=== PATIENT | male | born 1940 | race Caucasian/White ===

== ENCOUNTER 2017-07-14 21:09 | Inpatient (IN) | payer MEDICARE, OTHER ==
[~2017-07-14] VITALS: Ht 177.8 cm; Wt 71.2 kg
--- NOTE | 2017-07-14 21:44 | NUR ---
Unable to complete med recon at this time. Pt unable to verify if taking any medications. Pt arrived [facility], no medication list arrived with pt. No emergency contact listed to call.
[2017-07-14 21:50] LABS: BASOPHILS # (AUTO) 0.1 K/uL (0.0-8.0); BASOPHILS % (AUTO) 0.9 % (0.0-2.0); EOSINOPHILS % (AUTO) 0.3 % (0.0-7.0); LYMPHOCYTES # (AUTO) 1.1 K/UL (0.8-4.8); LYMPHOCYTES % (AUTO) 17.5 % (20.5-51.5); MEAN CORPUSCULAR HEMOGLOBIN 29.3 UUG (27.0-31.0); MEAN CORPUSCULAR HGB CONC 33 g/dL (32.0-37.0); MEAN CORPUSCULAR VOLUME 89.7 FL (82.0-92.0); MONOCYTES # (AUTO) 0.4 K/UL (0.1-1.30); MONOCYTES % (AUTO) 6.6 % (0.0-11.0); NEUTROPHILS # (AUTO) 4.6 K/UL (1.8-8.9); NEUTROPHILS % (AUTO) 74.7 % (38.5-71.5); PLATELET COUNT (AUTO) 163 K/UL (150-450); RED BLOOD CELL COUNT(AUTO) 5.13 MIL/UL (4.7-6.1); WHITE BLOOD COUNT (AUTO) 6.2 K/UL (4.0-11.2)
[2017-07-14 22:06] LABS: ALANINE AMINOTRANSFERASE 40 U/L (16-63); ALKALINE PHOSPHATASE 74 U/L (50-136); ASPARTATE AMINOTRANSFERASE 38 U/L (15-37); BILIRUBIN,DIRECT 0.3 mg/dL (0.0-0.2); BILIRUBIN,TOTAL 1.2 mg/dL (0.2-1.0); CARBON DIOXIDE 27 mmol/L (21-32); CHLORIDE 107 mmol/L (98-107); CREATININE 1.3 mg/dL (0.6-1.3); GLUCOSE 134 mg/dL (74-106); POTASSIUM 4.3 mmol/L (3.5-5.1); TOTAL PROTEIN, SERUM 7.4 g/dL (6.4-8.2); UREA NITROGEN, BLOOD 28 mg/dL (7-18)
[2017-07-14 22:08] LABS: ACETAMINOPHEN < 2.0 ug/mL (10-30)
[2017-07-14 22:21] LABS: ETHANOL < 3 MG/DL (0-0)
[2017-07-14 22:32] LABS: THYROID STIMULATING HORMONE 1.544 mIU/mL (0.358-3.740)
--- NOTE | 2017-07-14 23:10 | NUR ---
Pt. admitted to [facility], under care of Dr. Luna Belongs List completed
[2017-07-14 23:20] VITALS: BP 142/84
--- NOTE | 2017-07-14 23:45 | NUR ---
received to care, at 2315, from the emergency room on a 72 hour hold, for danger to self. according to the hold, he is a resident of the [facility], where he was reported to be wandering the halls of the 5th floor of his residence in his underwear, appearing confused and disoriented. he also had a previous suicide attempt, when he jumped out of his 5th floor window. [employer] was dispatched after a neighbor called 911. upon arrival on the unit, he appeared very confused and disorganized. french speaking only. he was unable to state his name, or other pertinent information. he did state that he is HIV positive, had a recent fall, and suffers from depression. pt was cooperative with physical assessment, and is now in bed. no distress noted. will continue to monitor closely.
[2017-07-15] MEDS ORDERED: ACETAMINOPHEN 325 MG TABLET PO PRN
[2017-07-15] MEDS ORDERED: MAGNESIUM HYDROXIDE 30 ML LIQUID UDC PO PRN
[2017-07-15] MEDS ORDERED: ZOLPIDEM 5 MG TABLET PO PRN
[2017-07-15] MEDS ORDERED: MAG HYDROX/AL HYDROX/SIMETH 30 ML LIQUID UDC PO PRN
--- NOTE | 2017-07-15 06:00 | NUR ---
slept 2.25 hours, total. refused PRN medications for insomnia and anxiety. as of 0600, he continues to sleep. no distress noted.
[2017-07-15 07:30] VITALS: BP 167/84
[2017-07-15] MEDS: risperiDONE-M 0.5 MG TAB.RAPDIS PO SCH ×2 (09:00→16:31)
[2017-07-15] MEDS ORDERED: INFLUENZA VACCINE 2017-2018 0.5 ML DISP.SYRIN IM ONE (12:30)
[2017-07-15] MEDS ORDERED: PNEUMOCOCCAL 23-VAL P-SAC VAC 0.5 ML VIAL IM ONE (13:00)
--- NOTE | 2017-07-15 13:59 | NUR ---
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 refused, Also refused meals, fluids offered. refused immunization ordered, transfer engineer requested, patient speaks Sinhala but noted able to say simple Malaysian.Safety reviewed emphasized.
[2017-07-15 15:20] VITALS: BP 158/82
[2017-07-15] MEDS: LORAZEPAM 1 MG TABLET PO PRN (15:52)
[2017-07-15] MEDS: METOPROLOL TARTRATE 25 MG TABLET PO SCH (22:45)
[2017-07-15 22:53] LABS: *AMPHETAMINE, URINE NEGATIVE (NEGATIVE); *BARBITURATE, URINE NEGATIVE (NEGATIVE); *CANNABINOID, URINE NEGATIVE (NEGATIVE); *COCCAINE, URINE NEGATIVE (NEGATIVE); *OPIATE, URINE NEGATIVE (NEGATIVE); *PHENCYCLIDINE SCREEN,URINE NEGATIVE (NEGATIVE)
[2017-07-15 23:03] LABS: *BLOOD, URINE NEGATIVE (NEGATIVE); *CLARITY,URINE CLEAR (CLEAR); *COLOR,URINE YELLOW (YELLOW); *KETONES,URINE 2+ (NEGATIVE); *PROTEIN,URINE TRACE (NEGATIVE); *UROBILINOGEN,URINE 0.2 E.U./dl (NORMAL); LEUKOCYTE ESTERASE ,URINE NEGATIVE (NEGATIVE); NITRITE, URINE NEGATIVE (NEGATIVE); PH,URINE 5.5 (5.0-8.0); UGLUCOSE NEGATIVE (NEGATIVE)
[2017-07-15 23:07] LABS: *BILIRUBIN,URIN 2+ (NEGATIVE)
[2017-07-15 23:10] LABS: BACTERIA,URINE NONE SEEN /HPF (NONE SEEN); RBC,URINE 0-3 /HPF (0-3); SQUAMOUS EPITHELIAL CELL,UR FEW /HPF (NONE SEEN); WBC,URINE 0-3 /HPF (0-3)
[2017-07-16 07:27] LABS: BASOPHILS % (AUTO) 0.5 % (0.0-2.0); EOSINOPHILS % (AUTO) 1.2 % (0.0-7.0); HEMATOCRIT 40.4 % (40-50); HEMOGLOBIN 13.4 G/DL (14.0-18.0); LYMPHOCYTES # (AUTO) 1.1 K/UL (0.8-4.8); LYMPHOCYTES % (AUTO) 27.3 % (20.5-51.5); MEAN CORPUSCULAR HEMOGLOBIN 29.8 UUG (27.0-31.0); MEAN CORPUSCULAR HGB CONC 33 g/dL (32.0-37.0); MEAN CORPUSCULAR VOLUME 89.7 FL (82.0-92.0); MONOCYTES # (AUTO) 0.4 K/UL (0.1-1.30); MONOCYTES % (AUTO) 9.8 % (0.0-11.0); NEUTROPHILS # (AUTO) 2.6 K/UL (1.8-8.9); NEUTROPHILS % (AUTO) 61.2 % (38.5-71.5); PLATELET COUNT (AUTO) 132 K/UL (150-450); RED BLOOD CELL COUNT(AUTO) 4.51 MIL/UL (4.7-6.1); WHITE BLOOD COUNT (AUTO) 4.1 K/UL (4.0-11.2)
[2017-07-16 07:30] VITALS: BP 120/66
[2017-07-16 07:47] LABS: THYROID STIMULATING HORMONE 1.947 mIU/mL (0.358-3.740)
[2017-07-16 08:11] LABS: ALANINE AMINOTRANSFERASE 32 U/L (16-63); ALKALINE PHOSPHATASE 59 U/L (50-136); ASPARTATE AMINOTRANSFERASE 27 U/L (15-37); BILIRUBIN,TOTAL 0.8 mg/dL (0.2-1.0); CARBON DIOXIDE 27 mmol/L (21-32); CHLORIDE 110 mmol/L (98-107); CREATININE 1.1 mg/dL (0.6-1.3); GLUCOSE 101 mg/dL (74-106); PHOSPHOROUS 3.6 mg/dL (2.5-4.9); POTASSIUM 3.9 mmol/L (3.5-5.1); TOTAL PROTEIN, SERUM 6.3 g/dL (6.4-8.2); UREA NITROGEN, BLOOD 29 mg/dL (7-18)
--- NOTE | 2017-07-16 08:45 | NUR ---
Change Agent: SALIMA completed and submitted [employer] firearms report on 07/16/17.
[2017-07-16] MEDS: METOPROLOL TARTRATE 25 MG TABLET PO SCH ×2 (09:00→20:30)
[2017-07-16] MEDS: risperiDONE-M 0.5 MG TAB.RAPDIS PO SCH ×2 (09:00→17:00)
--- NOTE | 2017-07-16 12:15 | NUR ---
Initial Discharge Instructions: Per chart, pt currently resides at the [facility] [[address] [place] [address]; ] SW attempted to call facility to obtain collateral information, left message and awaiting return call. Per chart, pt's neighbor, Derrek called 911 to report concern. SW attempted to call Derrek ([phone]), left message and awaiting return call. SW will attempt to speak with pt at later time to form appropriate discharge plan. SW will speak with MD regarding proper discharge plan. SW will form a safe discharge.
[2017-07-16 15:00] VITALS: BP 157/84
[2017-07-16 20:20] VITALS: BP 136/74
[2017-07-17 07:30] VITALS: BP 133/59
[2017-07-17] MEDS: METOPROLOL TARTRATE 25 MG TABLET PO SCH ×2 (09:00→21:00)
[2017-07-17] MEDS: risperiDONE-M 0.5 MG TAB.RAPDIS PO SCH ×2 (09:00→17:16)
--- NOTE | 2017-07-17 16:54 | NUR ---
john/sheldon- B/P rechecked 8766 HR 83 02 sat 96%, asymtomatic, denies any dizziness, refused to go to be, refused to have his feet elevated, " i am fine"....He will not go to bed till tonight around 10 pm per patient.Will continue to monitor b/p Addendum: 07/17/17 at 1659 by DELTA PIKE LVN Gps/Sheldon- Error , charted on wrong patient.....
[2017-07-17 20:07] VITALS: BP 109/74
--- NOTE | 2017-07-17 21:00 | NUR ---
Pt BP DECREASED AT BEGINNING OF SHIFT AT 78/45. Pt GIVEN PO FLUIDS AND FEET ELEVATED WHILE IN BED. UPON RE-CHECK BP 109/74. HS ANTI-HYPERTENSIVE HELD.
[2017-07-18 07:30] VITALS: BP 89/51
[2017-07-18] MEDS: risperiDONE-M 0.5 MG TAB.RAPDIS PO SCH ×2 (09:00→17:00)
[2017-07-18] MEDS: METOPROLOL TARTRATE 25 MG TABLET PO SCH ×2 (09:00→20:43)
[2017-07-18] MEDS: LORAZEPAM 1 MG TABLET PO PRN (12:50)
[2017-07-18 15:26] VITALS: BP 117/65
--- NOTE | 2017-07-18 17:21 | NUR ---
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 noted loud , appeared to be interacting /talking to someone not there. Refused routine medications. Followed simple directions this pm. i.e. rolling to his sides so staff can changes his linens. Fluid offered, refused.
[2017-07-18 20:17] VITALS: BP 131/72
--- NOTE | 2017-07-19 06:48 | NUR ---
GPS: REMAIN COOPERATIVE WITH NURSING CARE. TOOK SHOWERED THIS MORNING. REFUSED MEDICATION LAST NIGHT. SLEPT 04:30 HRS THROUGH THE NIGHT. CONTINUE PLAN OF CARE.
[2017-07-19 07:30] VITALS: BP 147/85
[2017-07-19] MEDS: risperiDONE-M 0.5 MG TAB.RAPDIS PO SCH ×2 (08:50→17:00)
[2017-07-19] MEDS: METOPROLOL TARTRATE 25 MG TABLET PO SCH ×2 (08:51→21:00)
[2017-07-19] MEDS ORDERED: LORAZEPAM 2 MG/1 ML VIAL IM ONE (09:45)
[2017-07-19] MEDS ORDERED: OLANZAPINE 10 MG VIAL IM ONE (09:45)
--- NOTE | 2017-07-19 10:00 | NUR ---
pt observed attempting to go from bed to bed and laying down in other peers bed despite redirection. Pt is paranoid and starting to yell in Uzbek and threatening physical danger to others. Pt also disrobing and attempted to leave unite despite several attempts of redirection. Pt uncooperative with staff directions, was notified and pt given zyprexa 5mg IM and ativan 1mg IM one time. Explained to pt use o of IM medication. unit rules explained, Comfort measures provided.
--- NOTE | 2017-07-19 11:21 | NUR ---
Pt laying in bed resting, easily arousable. vital signs wnl. Pt remains confused and disoriented. No aggressive or combative behavior noted.
--- NOTE | 2017-07-19 14:00 | NUR ---
Patient found by shila haq sitting on left sife of buttocks on floor next to bed. Patient is confused and disoriented, poor historian, unable to give answers. Pt is paranoid and internally preoccupied. Pt was assisted to sitting position on bed, no injury was noted, skin intact. Pt vital signs wnl. MD was made aware and instructed to observe patient. No other interventions provided. Will continue to monitor for safety.
[2017-07-19 17:13] VITALS: BP 106/61
--- NOTE | 2017-07-19 18:04 | NUR ---
PT LAYING IN BED, NO ACUTE DISTRESS NOTED. REMAINS CONFUSED/DISORIENTED. PT REMAINS SELECTIVE WITH COMMUNICATION, NODDING HEAD YES OR NO AT TIMES AND STILL WITH EYES CLOSED AT TIMES. NO AGGRESSIVE OR COMBATIVE BEHAVIOR NOTED.
[2017-07-19 20:28] VITALS: BP 111/77
--- NOTE | 2017-07-19 21:58 | NUR ---
PATIENT RECEIVED IN AND OUT OF BED AND SITTING IN JILLIAN CHAIR. PATIENT PARANOID/SUSPICIOUS RESPONDING TO INTERNAL STIMULI. AT TIMES SINGING TO SELF. PATIENT REFUSING HS MEDICAITON, EXPLAINED THE IMPORTANCE OF TAKING MEDICATION CONTINUES TO REFUSE, NO EYE CONTACT NOTED. POOR JUDGEMENT, POOR IMPULSE CONTROL. NO AGGRESSIVE OR COMBATIVE BEHAVIOR NOTED WILL CONTINUE TO MONITOR.
[2017-07-20 07:30] VITALS: BP 118/68
[2017-07-20] MEDS: METOPROLOL TARTRATE 25 MG TABLET PO SCH ×2 (08:53→20:47)
[2017-07-20] MEDS: risperiDONE-M 0.5 MG TAB.RAPDIS PO SCH ×2 (08:54→17:00)
[2017-07-20 15:41] VITALS: BP 106/52
[2017-07-20 19:51] VITALS: BP 114/67
[2017-07-21 07:30] VITALS: BP 122/84
[2017-07-21] MEDS: risperiDONE-M 0.5 MG TAB.RAPDIS PO SCH (08:45)
[2017-07-21] MEDS: METOPROLOL TARTRATE 25 MG TABLET PO SCH ×2 (08:45→20:23)
[2017-07-21 16:00] VITALS: BP 109/73
[2017-07-21] MEDS ORDERED: HALOPERIDOL LACTATE 5 MG/1 ML VIAL IM PRN (16:00)
[2017-07-21] MEDS: BENZTROPINE MESYLATE 1 MG TABLET PO SCH (17:00)
[2017-07-21] MEDS: HALOPERIDOL LACTATE 10 MG/5 ML ORAL SOLUTION UDC PO SCH (17:00)
[2017-07-21 20:19] VITALS: BP 118/69
[2017-07-22 07:30] VITALS: BP 102/65
[2017-07-22] MEDS: BENZTROPINE MESYLATE 1 MG TABLET PO SCH ×3 (08:07→17:03)
[2017-07-22] MEDS: HALOPERIDOL LACTATE 10 MG/5 ML ORAL SOLUTION UDC PO SCH ×3 (08:09→17:03)
[2017-07-22] MEDS: METOPROLOL TARTRATE 25 MG TABLET PO SCH ×2 (08:19→20:34)
[2017-07-22 16:00] VITALS: BP 102/69
[2017-07-22 21:25] VITALS: BP 117/74
[2017-07-23 07:30] VITALS: BP 101/62
[2017-07-23] MEDS: BENZTROPINE MESYLATE 1 MG TABLET PO SCH ×3 (08:12→16:18)
[2017-07-23] MEDS: HALOPERIDOL LACTATE 10 MG/5 ML ORAL SOLUTION UDC PO SCH ×3 (08:13→16:18)
[2017-07-23] MEDS: METOPROLOL TARTRATE 25 MG TABLET PO SCH ×2 (08:13→20:46)
[2017-07-23] MEDS ORDERED: HALOPERIDOL DECANOATE 50 MG/1 ML AMPUL IM SCH (11:00)
[2017-07-23 20:46] VITALS: BP 106/61
--- NOTE | 2017-07-23 20:53 | NUR ---
RECEIVED PATIENT IN THE DAYROOM. HE IS A/O X 1, CONFUSED AT TIMES. HE WAS NOTED CALM, AND COOPERATIVE AT THIS TIME. NO VH OR AH NOTED AT THIS TIME. PT. ABLE TO MAKE EYE CONTACT. HE IS CURRENTLY WATCHING TV IN THE DAY ROOM. METOPROLOL 25MG QHS WAS HELD DUE TO LOW B/P OF 106/61 AND PULSE 62. WILL CONTINUE TO MONITOR.
[2017-07-24 07:30] VITALS: BP 111/52
[2017-07-24] MEDS: METOPROLOL TARTRATE 25 MG TABLET PO SCH ×2 (09:00→21:00)
[2017-07-24] MEDS: BENZTROPINE MESYLATE 1 MG TABLET PO SCH ×3 (09:01→17:45)
[2017-07-24] MEDS: HALOPERIDOL LACTATE 10 MG/5 ML ORAL SOLUTION UDC PO SCH ×3 (09:02→17:46)
[2017-07-24 15:00] VITALS: BP 137/59
--- NOTE | 2017-07-25 06:56 | NUR ---
PATIENT SLEPT APPROX 8 HRS THROUGH THE NIGHT. HE WAS CALM AND COOPERATIVE DURING THE SHIFT. NO BEHAVIOR PROBLEMS NOTED OR REPORTED DURING THE SHIFT. EASILY REDIRECTABLE.
[2017-07-25 07:30] VITALS: BP 117/73
[2017-07-25] MEDS: BENZTROPINE MESYLATE 1 MG TABLET PO SCH ×3 (09:00→17:42)
[2017-07-25] MEDS: METOPROLOL TARTRATE 25 MG TABLET PO SCH ×2 (09:00→20:38)
[2017-07-25] MEDS: HALOPERIDOL LACTATE 10 MG/5 ML ORAL SOLUTION UDC PO SCH ×3 (09:00→17:42)
[2017-07-25 16:45] VITALS: BP 112/59
[2017-07-25 20:00] VITALS: BP 116/51
[2017-07-26 07:30] VITALS: BP 120/75
[2017-07-26] MEDS: BENZTROPINE MESYLATE 1 MG TABLET PO SCH ×3 (09:34→17:25)
[2017-07-26] MEDS: METOPROLOL TARTRATE 25 MG TABLET PO SCH (09:35)
[2017-07-26] MEDS: HALOPERIDOL LACTATE 10 MG/5 ML ORAL SOLUTION UDC PO SCH ×3 (09:36→17:25)
--- NOTE | 2017-07-26 11:33 | NUR ---
DC Note: Patient will be discharged home [[facility] [address] [place] [address]; ] via [facility] between 3 and 3:30pm. Spoke with Claribel, the appeals manager of [facility], who is aware that patient will be discharged there today. Patient is aware and agreeable with discharge plans. Spoke with [facility] Operator[facility]bert, ([phone]) who scheduled the patients post-hospital visits. Patient will follow-up with his Primary Care Physician Dr. Koch ([address], [place] [address]) on August 04, 2017 at 11:30am. The patient has a medication appointment with a Dr. Terence Siegel (Psychiatrist) on August 02, 2017 at 11am ([address] [place] [address]). The patient also has a post-hospital visit on July 30, 2017 at 9am with his [employer], Jhonathan Badillo ([address] [place] [address]).
--- NOTE | 2017-07-26 11:51 | NUR ---
PATIENT WILL BE DISCHARGE HOME WITH HOME HEALTH FOLLOW UP ,PATIENT HAS SOME ABRASION, DISCOLOR AND SCRATCH SINCE ADMISSION .PATIENT REFUSED DISCHARGE PICTURE TAKEN.
[2017-07-26 17:03] VITALS: BP 104/59
--- NOTE | 2017-07-26 18:00 | NUR ---
DISCHARGE PATIENT HOME VIA [facility],ALL PERSONAL BELONGING TAKEN BY PATIENT.
== END 2017-07-26 18:00 | disposition home health service (06) | DRG 885 ==
LOC: ER 21:13 → GPS 23:05
PROVIDERS: ADMIT Psychiatry & Neurology Psychiatry; ATTEND Internal Medicine
DX: F20.0 Paranoid schizophrenia (principal); E87.0 Hyperosmolality and hypernatremia; D69.6 Thrombocytopenia, unspecified; R17 Unspecified jaundice; I67.2 Cerebral atherosclerosis; I45.81 Long QT syndrome; Z91.5 Personal history of self-harm; Z91.81 History of falling; Z91.19 Patient's noncompliance with other medical treatment and regimen; E78.5 Hyperlipidemia, unspecified; I10 Essential (primary) hypertension; I49.1 Atrial premature depolarization; Z91.83 Wandering in diseases classified elsewhere; F31.9 Bipolar disorder, unspecified
CPT/HCPCS: 36415; 70450; 80307; 83735; 84100; 84443; 85025; 87086; 90732; 93005; A4663; G0480; G0480-TC; J1630; J1631; J2060; J2358